=== PATIENT | female | born 1985 | race Caucasian/White ===

== ENCOUNTER 2017-01-23 22:00 | Emergency (ER) | payer OTHER ==
[2017-01-23 22:18] VITALS: BP 136/90
== END 2017-01-24 05:46 | disposition left against medical advice (07) ==
LOC: ER 22:00
DX: Z53.21 Procedure and treatment not carried out due to patient leaving prior to being seen by health care provider (principal)

== ENCOUNTER 2017-07-27 19:40 | Emergency (ER) | payer OTHER ==
--- NOTE | 2017-07-27 20:52 | RADIOLOGY REPORT (SQ) ---
EXAM DESCRIPTION: ANKLE RIGHT COMPLETE COMPLETED DATE/TIME: 07/27/2017 8:43 pm REASON FOR STUDY: SOFTBALL INJURY COMPARISON: None. NUMBER OF VIEWS: Three views. TECHNIQUE: AP, lateral, and oblique radiographic images acquired of the right ankle. LIMITATIONS: None. FINDINGS: MINERALIZATION: Normal. BONES: No acute fracture or dislocation. No worrisome bone lesions. JOINTS: No effusions. SOFT TISSUES: Soft tissue swelling is identified. OTHER: Plantar spurring is identified. IMPRESSION: Soft tissue swelling without evidence for fracture. TECHNICAL DOCUMENTATION: JOB ID: [id number] [employer]- All Rights Reserved
--- NOTE | 2017-07-27 23:01 | ER Document Report ---
HPI - HPI Pain Level: 4 Notes: Patient is a 32-year-old female who presents the ED complaining of right foot and ankle pain status post twist injury while playing softball 3 days ago. Patient states that she was evaluated by the [facility] and was diagnosed with a sprain and given crutches and an air stirrup. Patient states that she is currently with the [employer] and told her to recommend that she will not be able to participate in the PT exercises because of her current condition. Her chain of command wanted her to go to another hospital for another opinion. Patient states that she has not been able to ambulate on that foot because of the pain in the swelling. Patient has been using crutches at home to aid in ambulation. She has been using [id number] meds with minimal relief. The pain does not radiate otherwise. She denies any numbness or tingling. Denies any headache, fever, chest pain, palpitations, syncope, cough, shortness of breath, wheeze, dyspnea, abdominal pain, nausea/vomiting/diarrhea, urinary retention, dysuria, hematuria, numbness/tingling, or rash. - ROS Notes: REVIEW OF SYSTEMS: CONSTITUTIONAL : Denies fever, chills, or sweats. Denies recent illness. EENT: Denies eye, ear, throat, or mouth pain or symptoms. Denies nasal or sinus congestion or discharge. Denies throat, tongue, or mouth swelling or difficulty swallowing. CARDIOVASCULAR: Denies chest pain. Denies palpitations or racing or irregular heart beat. Denies ankle edema. RESPIRATORY: Denies cough, cold, or chest congestion. Denies shortness of breath, difficulty breathing, or wheezing. GASTROINTESTINAL: Denies abdominal pain or distention. Denies nausea, vomiting , or diarrhea. Denies blood in vomitus, stools, or per rectum. Denies black, tarry stools. Denies constipation. GENITOURINARY: Denies difficulty urinating, painful urination, burning, frequency, blood in urine, or discharge. MUSCULOSKELETAL: see hpi SKIN: Denies rash, lesions or sores. NEUROLOGICAL: Denies confusion or altered mental status. Denies passing out or loss of consciousness. Denies dizziness or lightheadedness. Denies headache. Denies weakness or paralysis or loss of use of either side. Denies problems with gait or speech. Denies sensory loss, numbness, or tingling. ALL OTHER SYSTEMS REVIEWED AND NEGATIVE. Dictation was performed using [employer]. voice recognition software - CARDIOVASCULAR Cardiovascular: DENIES: Chest pain - DERM Skin Color: Ecchymosis Past Medical History - Social History Smoking Status: Current Every Day Smoker Chew tobacco use (# tins/day): No Frequency of alcohol use: None Drug Abuse: None Family History: Reviewed & Not Pertinent Patient has suicidal ideation: No Patient has homicidal ideation: No Renal/ Medical History: Denies: Hx Peritoneal Dialysis Surgical Hx: Negative - Immunizations Hx Diphtheria, Pertussis, Tetanus Vaccination: Yes Vertical Provider Document - CONSTITUTIONAL Agree With Documented VS: Yes Notes: PHYSICAL EXAMINATION: GENERAL: Well-appearing, well-nourished and in no acute distress. LUNGS: Breath sounds clear to auscultation bilaterally and equal. No wheezes rales or rhonchi. HEART: Regular rate and rhythm without murmurs, rubs, gallops. Musculoskeletal: Rt ankle/foot: + swelling with ecchymosis noted. LROM to passive/active. Strength 4+/5. + tenderness to the ATFL area as well as the lateral malleolus. N/V intact. Extremities: No cyanosis, clubbing, or edema b/l. Peripheral pulses 2+. Capillary refill less than 3 seconds. NEUROLOGICAL: Normal speech, normal gait. Normal sensory, motor exams PSYCH: Normal mood, normal affect. SKIN: see MSK exam. Warm, Dry, normal turgor, no rashes or lesions noted. - INFECTION CONTROL TRAVEL OUTSIDE OF THE [place] IN LAST 30 DAYS: No - RESPIRATORY O2 Sat by Pulse Oximetry: 100 Course - Re-evaluation Re-evalutation: 07/27/17 22:59 Patient is an afebrile, well-hydrated, 32-year-old female who presents the ED with a right ankle sprain. Vitals are stable. PE/XR otherwise unremarkable for any neurovascular compromise, tendon rupture, septic joint, fracture or dislocation. Patient already has crutches. Patient requesting another form of support for her foot she had he has an Partha wrap and ankle stirrup. We will try her on a postop shoe as patient is concerned because she keeps bumping her foot on objects around her house. Conservative measures for symptoms otherwise. Advised recheck and further evaluation with orthopedics next week. Keep consult with your PCM as scheduled. Return to the ED with any worsening/ concerning symptoms otherwise as reviewed discharge. Patient is in agreement. - Vital Signs Vital signs: Temp Pulse Resp BP Pulse Ox 98.3 F 88 18 147/76 H 100 07/27/17 20:12 07/27/17 20:12 07/27/17 20:12 07/27/17 20:12 07/27/17 20:12 Discharge - Discharge Clinical Impression: Right ankle sprain Qualifiers: Encounter type: initial encounter Involved ligament of ankle: unspecified ligament Qualified Code(s): S93.401A - Sprain of unspecified ligament of right ankle, initial encounter Condition: Stable Disposition: HOME, SELF-CARE Instructions: Ankle Stirrup Splint ([facility]), Partha Wrap ([facility]), Use of Crutches ([facility]) , Ice & Elevation ([facility]), Ice Packs ([facility]), Sprained Ankle ([facility]), Ankle Exercise Program ([facility]), Sports and your Ankle Additional Instructions: Rest, Ice, Compression, Elevation Use crutches/splint/wrap as directed Tylenol/ibuprofen as needed Light stretches daily Strength exercises as able Moist heat and massage may help F/u with your PCP as scheduled for a recheck Call orthopedics to schedule an appointment for further evaluation and management Return to the ED with any worsening symptoms and/or development of fever, headache, chest pain, palpitations, syncope, shortness of breath, trouble breathing, abdominal pain, n/v/d, muscle weakness/paralysis, numbness/tingling, swelling, redness, or other worsening symptoms that are concerning to you. Prescriptions: Naproxen 500 mg PO BID PRN #30 tablet PRN Reason: Forms: Elevated Blood Pressure Referrals: [facility] [Provider Group] - Follow up in 3-5 days
[2017-07-28 00:05] VITALS: BP 122/62
== END 2017-07-28 00:02 | disposition home or self-care (01) ==
LOC: ER 19:40
DX: S93.401A Sprain of unspecified ligament of right ankle, initial encounter (principal); M79.671 Pain in right foot; X50.0XXA Overexertion from strenuous movement or load, initial encounter; Y93.64 Activity, baseball; F17.200 Nicotine dependence, unspecified, uncomplicated
CPT/HCPCS: 99283

== ENCOUNTER 2018-04-03 11:21 | Emergency (ER) | payer OTHER ==
--- NOTE | 2018-04-03 11:54 | ER Document Report ---
ED Hip Pain/Injury - General Chief Complaint: Hip Pain Stated Complaint: LEFT HIP PAIN Time Seen by Provider: 04/03/18 11:41 Mode of Arrival: Ambulatory Information source: Patient Notes: 33-year-old female presents to ED for complaint of left hip pain that radiates down to her knee. She states she originally injured on Monday while running and then while at work on this morning she lifted some heavy and it started hurting all over again. Respirations are regular and unlabored. Patient was placed in a wheelchair due to the pain. Patient is active nerves and went to the [facility] on Monday they did not tractor for and they started her on [place] well Robaxin and ibuprofen. She states they did not do an x-ray of her hip. She states the pain is much worse today than it was on Monday. TRAVEL OUTSIDE OF THE [place] IN LAST 30 DAYS: No - HPI Patient complains to provider of: Hip - left Occurred: Other - monday Where: Work Onset/Duration: Persistent, Worse Quality of pain: Burning, Sharp Severity: Moderate Pain Level: 4 Context: Other - First injured it while running PT for the [employer] and then she lifted something heavy and hurting it again. 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 Lives with: Spouse/Significant other Family History: Reviewed & Not Pertinent Patient has suicidal ideation: No Patient has homicidal ideation: No - Past Medical History Cardiac Medical History: Reports: None Pulmonary Medical History: Reports: None EENT Medical History: Reports: None Neurological Medical History: Reports: None Endocrine Medical History: Reports: None Renal/ Medical History: Reports: None Malignancy Medical History: Reports: None GI Medical History: Reports: None Musculoskeltal Medical History: Reports None Skin Medical History: Reports None Psychiatric Medical History: Reports: None Traumatic Medical History: Reports: None Infectious Medical History: Reports: None Surgical Hx: Negative Past Surgical History: Reports: None - Immunizations Immunizations up to date: Yes Hx Diphtheria, Pertussis, Tetanus Vaccination: Yes Review of Systems - Review of Systems Constitutional: No symptoms reported EENT: No symptoms reported Cardiovascular: No symptoms reported Respiratory: No symptoms reported Gastrointestinal: No symptoms reported Genitourinary: No symptoms reported Female Genitourinary: No symptoms reported Musculoskeletal: Other - Left hip and pelvic pain Skin: No symptoms reported Hematologic/Lymphatic: No symptoms reported Neurological/Psychological: No symptoms reported -: Yes All other systems reviewed and negative Physical Exam - Vital signs Vitals: Temp Pulse Resp BP Pulse Ox 98.7 F 96 22 H 168/87 H 98 04/03/18 11:29 04/03/18 11:29 04/03/18 11:29 04/03/18 11:29 04/03/18 11:29 Interpretation: Normal - General General appearance: Appears well, Alert - HEENT Head: Normocephalic, Atraumatic Eyes: Normal Pupils: PERRL - Respiratory Respiratory status: No respiratory distress Chest status: Nontender Breath sounds: Normal Chest palpation: Normal - Cardiovascular Rhythm: Regular Heart sounds: Normal auscultation Murmur: No - Abdominal Inspection: Normal Distension: No distension Bowel sounds: Normal Tenderness: Nontender Organomegaly: No organomegaly - Back Back: Normal, Nontender - Extremities General upper extremity: Normal inspection, Nontender, Normal color, Normal ROM , Normal temperature General lower extremity: Normal inspection, Nontender, Normal color, Normal ROM , Normal temperature, Normal weight bearing. No: Jerrod's sign Shoulder: Normal, Nontender Hip: Tender, Pain with ROM, Unable to bear weight. No: Abrasion, Deformity, Dislocation, Ecchymosis, Instability, Laceration - Neurological Neuro grossly intact: Yes Cognition: Normal Orientation: AAOx4 Krysten Coma Scale Eye Opening: Spontaneous Krysten Coma Scale Verbal: Oriented [place] Coma Scale Motor: Obeys Commands Krysten Coma Scale Total: 15 Speech: Normal Motor strength normal: LUE, RUE, LLE, RLE Sensory: Normal - Psychological Associated symptoms: Normal affect, Normal mood - Skin Skin Temperature: Warm Skin Moisture: Dry Skin Color: Normal Course - Re-evaluation Re-evalutation: 04/03/18 21:52 Patient is complaining of left hip and pelvic pain. Her urine did come back with a UTI. She states that she and her girlfriend been trying to get to the soft cup measures third. Her test was negative. Her x-ray was negative. Patient was instructed on use of ibuprofen and exercise and to follow-up with her primary doctor. She was treated with Macrobid in the emergency room and her urine was sent for a urine culture. She was also sent home with prescription for Macrobid. - Vital Signs Vital signs: Temp Pulse Resp BP Pulse Ox 98.7 F 82 18 153/74 H 99 04/03/18 11:29 04/03/18 13:33 04/03/18 13:33 04/03/18 13:33 04/03/18 13:33 - Laboratory Laboratory results interpreted by me: 04/03/18 11:50 Ur Leukocyte Esterase SMALL H - Diagnostic Test Radiology reviewed: Image reviewed, Reports reviewed Discharge - Discharge Clinical Impression: Left hip pain UTI (urinary tract infection) Qualifiers: Urinary tract infection type: site unspecified Hematuria presence: without hematuria Qualified Code(s): N39.0 - Urinary tract infection, site not specified Condition: Stable Disposition: HOME, SELF-CARE Instructions: Range of Motion Exercises ([facility]), Stretching Exercises for the Back ([facility]) Additional Instructions: Arthralgia Arthralgia is pain in the joints. We use the word arthralgia to describe joint pain where there's no history of injury, no known joint disease, and the joints are normal to examination. Arthralgia can be a symptom of an acute illness, such as influenza, hepatitis, or serum sickness. Sometimes the joint pain comes before any other symptoms. Arthralgia can also be an early symptom of joint disease, such as rheumatoid arthritis or lupus. If arthralgia is accompanied by an acute illness that explains the joint pain, such as mononucleosis, no further testing needs to be done. When there's no clear reason for the pain, tests may be done to see if there's an inflammatory disease of the joints. The usual treatment is anti-inflammatory medication, such as ibuprofen. Joint aches can be soothed with a heating pad or hot compress. If joints remain painful more than a few days, you'll need testing and followup. Return if a joint becomes swollen, red, or severely painful. URINARY TRACT INFECTION: Your evaluation indicates that you have a urinary tract infection. This is due to germs growing in the bladder. This is a common problem. This infection usually responds quickly to antibiotics. Your antibiotic should be taken exactly as prescribed. Drink plenty of fluids -- three to four quarts a day. Occasionally, a bladder anesthetic will be prescribed to help stop the feeling of urgency until the antibiotic has a chance to clear the infection. This may cause your urine to be dark orange. Certain urine infections require a culture. If the doctor obtained a culture, the results will be back in two days. You should call to see if a change in treatment is needed. A repeat urinalysis after you finish treatment is often recommended. The physician will let you know if further testing is required. Call the doctor if you develop fever, chills, flank pain, inability to urinate, or blood in the urine. NITROFURANTOIN (MACRODANTIN, MACROBID): You have received a prescription for nitrofurantoin (Macrodantin). This antibiotic is used for urinary tract infections. Women who are or nursing should notify the physician before taking this medicine. If you have ever had a problem caused by this medication in the past, be sure the physician is aware of it. Common side effects of this medicine include nausea, vomiting, or decreased appetite. Notify your physician if these side effects become severe. Immediately stop this medicine and call the physician if you develop cough , shortness of breath, chest pain, weakness, jaundice (yellow color of the skin and whites of the eyes), or a skin rash. You have been given muscle relaxers and anti-inflammatories both of which will help your hip pain as there is no fractures noted on the hip. I have given you antibiotics for your urinary tract infection. A urine culture was sent to ensure this is the right antibiotic. FOLLOW-UP CARE: If you have been referred to a physician for follow-up care, call the physician s office for an appointment as you were instructed or within the next two days. If you experience worsening or a significant change in your symptoms, notify the physician immediately or return to the Emergency Department at any time for re-evaluation. Prescriptions: Nitrofurantoin/Nitrofuran Mac [Macrobid 100 mg Capsule] 1 tab PO BID #20 capsule Forms: Elevated Blood Pressure, Smoking Cessation Education, Return to Work Referrals: RUSS CORTEZ, [ACTIVE STAFF] - Follow up as needed
[2018-04-03 12:14] LABS: APPEARANCE,URINE CLEAR; BILIRUBIN,URINE NEGATIVE (NEGATIVE); GLUCOSE, URINE NEGATIVE (NEGATIVE); KETONES,URINE NEGATIVE (NEGATIVE); LEUKOCYTE ESTERASE,URINE SMALL (NEGATIVE); NITRITE,URINE NEGATIVE (NEGATIVE); PROTEIN,URINE NEGATIVE (NEGATIVE); URINE SPECIFIC GRAVITY 1.005; UROBILINOGEN,URINE NEGATIVE mg/dL (<2.0)
[2018-04-03 12:16] LABS: COLOR,URINE LIGHT YELLOW
--- NOTE | 2018-04-03 13:13 | RADIOLOGY REPORT (SQ) ---
EXAM DESCRIPTION: HIP LEFT AP/LATERAL COMPLETED DATE/TIME: 04/03/2018 1:06 pm REASON FOR STUDY: pain injury COMPARISON: None. NUMBER OF VIEWS: Two views. TECHNIQUE: AP pelvis and additional frog-leg view of the left hip. LIMITATIONS: None. FINDINGS: MINERALIZATION: Normal. LEFT HIP: No fracture or dislocation. No worrisome bone lesions. RIGHT HIP: No fracture or dislocation. No worrisome bone lesions. PUBIS AND ISCHIUM: No fracture. PELVIS: No fracture. SACRUM: No fracture or dislocation. No worrisome bone lesions. LOWER LUMBAR SPINE: No fracture or dislocation. No worrisome bone lesions. No significant disc disea se. SOFT TISSUES: No findings. OTHER: No other significant finding. IMPRESSION: NEGATIVE STUDY OF THE LEFT HIP AND PELVIS. NO RADIOGRAPHIC EVIDENCE OF ACUTE INJURY. TECHNICAL DOCUMENTATION: JOB ID: [id number] [employer]- All Rights Reserved Reading location - IP/workstation name: [email or web address]
[2018-04-03 13:34] VITALS: BP 153/74
== END 2018-04-03 13:33 | disposition home or self-care (01) ==
LOC: ER 11:21
DX: M25.552 Pain in left hip (principal); N39.0 Urinary tract infection, site not specified; R10.2 Pelvic and perineal pain; F17.210 Nicotine dependence, cigarettes, uncomplicated; Z71.6 Tobacco abuse counseling
CPT/HCPCS: 36415; 81001; 84703; 87086; 99283; 99406

== ENCOUNTER 2018-05-01 16:20 | Emergency (ER) | payer OTHER ==
--- NOTE | 2018-05-01 17:44 | ER Document Report ---
ED General - General Chief Complaint: Lower Abdominal Pain Stated Complaint: ABDOMINAL PAIN Time Seen by Provider: 05/01/18 17:34 Mode of Arrival: Ambulatory Information source: Patient Notes: 33-year-old female presents with complaints of cramping on the left lower quadrant. Patient notes she found that she is last night she is 2 para 1 last menstrual period was approximately 1 month ago Patient unsure blood type, denies any vaginal bleeding or discharge TRAVEL OUTSIDE OF THE [place] IN LAST 30 DAYS: No - HPI Onset: This morning Onset/Duration: Sudden Quality of pain: Cramping Severity: Mild Pain Level: 1 Associated symptoms: Other Exacerbated by: Denies Relieved by: Denies Similar symptoms previously: No Recently seen / treated by doctor: No - Related Data Allergies/Adverse Reactions: No Known Allergies Allergy (Unverified 10/23/15 20:12) Past Medical History - Social History Smoking Status: Never Smoker Cigarette use (# per day): No Chew tobacco use (# tins/day): No Smoking Education Provided: No Family History: Reviewed & Not Pertinent Renal/ Medical History: Denies: Hx Peritoneal Dialysis - Immunizations Immunizations up to date: Yes Hx Diphtheria, Pertussis, Tetanus Vaccination: Yes Review of Systems - Review of Systems Notes: REVIEW OF SYSTEMS: CONSTITUTIONAL : Denies fever, chills, or sweats. Denies recent illness. EENT: Denies eye, ear, throat, or mouth pain or symptoms. Denies nasal or sinus congestion or discharge. Denies throat, tongue, or mouth swelling or difficulty swallowing. CARDIOVASCULAR: Denies chest pain. Denies palpitations or racing or irregular heart beat. Denies ankle edema. RESPIRATORY: Denies cough, cold, or chest congestion. Denies shortness of breath, difficulty breathing, or wheezing. GASTROINTESTINAL: Admits to pelvic cramping GENITOURINARY: Denies difficulty urinating, painful urination, burning, frequency, blood in urine, or discharge. FEMALE GENITOURINARY: Denies vaginal bleeding, heavy or abnormal periods, irregular periods. Denies vaginal discharge or odor. MUSCULOSKELETAL: Denies back or neck pain or stiffness. Denies joint pain or swelling. SKIN: Denies rash, lesions or sores. HEMATOLOGIC : Denies easy bruising or bleeding. LYMPHATIC: Denies swollen, enlarged glands. NEUROLOGICAL: Denies confusion or altered mental status. Denies passing out or loss of consciousness. Denies dizziness or lightheadedness. Denies headache. Denies weakness or paralysis or loss of use of either side. Denies problems with gait or speech. Denies sensory loss, numbness, or tingling. Denies seizures. PSYCHIATRIC: Denies anxiety or stress. Denies depression, suicidal ideation, or homicidal ideation. ALL OTHER SYSTEMS REVIEWED AND NEGATIVE. PHYSICAL EXAMINATION: GENERAL: Well-appearing, well-nourished and in no acute distress. HEAD: Atraumatic, normocephalic. EYES: Pupils equal round and reactive to light, extraocular movements intact, conjunctiva are normal. ENT: Nares patent, oropharynx clear without exudates. Moist mucous membranes. NECK: Normal range of motion, supple without lymphadenopathy LUNGS: Breath sounds clear to auscultation bilaterally and equal. No wheezes rales or rhonchi. HEART: Regular rate and rhythm without murmurs ABDOMEN: Soft, nontender, nondistended abdomen. No guarding, no rebound. No masses appreciated. Female : deferred Musculoskeletal: Normal range of motion, no pitting or edema. No cyanosis. NEUROLOGICAL: Cranial nerves grossly intact. Normal speech, normal gait. Normal sensory, motor exams PSYCH: Normal mood, normal affect. SKIN: Warm, Dry, normal turgor, no rashes or lesions noted. Dictation was performed using [employer] voice recognition software Physical Exam - Vital signs Vitals: Temp Pulse Resp BP Pulse Ox 99.0 F 89 16 137/76 H 99 05/01/18 16:31 05/01/18 16:31 05/01/18 16:31 18 16:31 05/01/18 16:31 Course - Re-evaluation Re-evalutation: 05/01/18 19:07 Patient's hCG quant is 60, there is too early to see anything on ultrasound, repeat quant has been ordered we will treat for UTI and After performing a Medical Screening Examination, I estimate there is LOW risk for ACUTE APPENDICITIS, BOWEL OBSTRUCTION, ACUTE CHOLECYSTITIS, PERFORATED DIVERTICULITIS, INCARCERATED HERNIA, PANCREATITIS, PELVIC INFLAMMATORY DISEASE, PERFORATED ULCER, ECTOPIC , or TUBO-OVARIAN ABSCESS, thus I consider the discharge disposition reasonable. Also, there is no evidence or peritonitis , sepsis, or toxicity. I have reevaluated this patient multiple times and no significant life threatening changes are noted. The patient and I have discussed the diagnosis and risks, and we agree with discharging home with close follow-up with the understanding that symptoms and presentations can change. We also discussed returning to the Emergency Department immediately if new or worsening symptoms occur. We have discussed the symptoms which are most concerning (e.g., bloody stool, fever, changing or worsening pain, vomiting) that necessitate immediate return. - Vital Signs Vital signs: Temp Pulse Resp BP Pulse Ox 99.0 F 89 16 137/76 H 99 05/01/18 16:31 05/01/18 16:31 05/01/18 16:31 05/01/18 16:31 05/01/18 16:31 - Laboratory Result Diagrams: 05/01/18 17:55 05/01/18 17:55 Laboratory results interpreted by me: 05/01/18 05/01/18 16:25 17:55 Beta HCG, Quant 60.59 H Urine Blood SMALL H Ur Leukocyte Esterase SMALL H Discharge - Discharge Clinical Impression: Early stage of UTI in Qualifiers: Trimester: first trimester Qualified Code(s): O23.41 - Unspecified infection of urinary tract in , first trimester Condition: Stable Disposition: HOME, SELF-CARE Instructions: ([facility]) Prescriptions: Cephalexin Monohydrate [Keflex 500 mg Capsule] 500 mg PO BID 7 Days capsule Forms: Follow-Up Laboratory Testing Referrals: KENN GUTIERREZ MD [NO LOCAL MD] - [facility] - Follow up tomorrow
[2018-05-01 18:14] LABS: ABSOLUTE BASOPHILS # (AUTO) 0.1 10^3/uL (0.0-0.2); ABSOLUTE EOSINOPHILS # (AUTO) 0.3 10^3/uL (0.0-0.6); ABSOLUTE LYMPHOCYTES (AUTO) 2.4 10^3/uL (0.5-4.7); ABSOLUTE MONOCYTES (AUTO) 0.4 10^3/uL (0.1-1.4); ABSOLUTE NEUT (AUTO) 6.8 10^3/uL (1.7-8.2); EOSINOPHILS % (AUTO) 2.8 % (0-6); HEMATOCRIT 39.8 % (36.0-47.0); HEMOGLOBIN 13.8 g/dL (12.0-15.5); LYMPHOCYTES % (AUTO) 23.9 % (13-45); MEAN CORPUSCULAR HEMOGLOBIN 30.5 pg (27.0-33.4); MEAN CORPUSCULAR HGB CONC 34.8 g/dL (32.0-36.0); MEAN CORPUSCULAR VOLUME 88 fl (80-97); MONOCYTES % (AUTO) 4.4 % (3-13); PLATELET COUNT 353 10^3/uL (150-450); RED BLOOD COUNT 4.54 10^6/uL (3.72-5.28); RED CELL DISTRIBUTION WIDTH 13.8 % (11.5-14.0); SEGMENTED NEUTROPHILS % (AUTO) 67.9 % (42-78); TOTAL CELLS COUNTED % (AUTO) 100 %
[2018-05-01 18:36] LABS: ALANINE AMINOTRANSFERASE 24 U/L (9-52); ALBUMIN 4.3 g/dL (3.5-5.0); ALKALINE PHOSPHATASE 53 U/L (38-126); ANION GAP 9 (5-19); ASPARTATE AMINO TRANSFERASE 20 U/L (14-36); BILIRUBIN,DIRECT 0.3 mg/dL (0.0-0.4); BILIRUBIN,TOTAL 0.4 mg/dL (0.2-1.3); BLOOD UREA NITROGEN 13 mg/dL (7-20); CALCIUM 9.7 mg/dL (8.4-10.2); CARBON DIOXIDE 25 mmol/L (22-30); CHLORIDE 107 mmol/L (98-107); GLUCOSE 100 mg/dL (75-110); POTASSIUM 4.4 mmol/L (3.6-5.0); SODIUM 141.1 mmol/L (137-145); TOTAL PROTEIN 7.1 g/dL (6.3-8.2)
[2018-05-01 18:36] LABS: APPEARANCE,URINE CLEAR; BILIRUBIN,URINE NEGATIVE (NEGATIVE); COLOR,URINE COLORLESS; GLUCOSE, URINE NEGATIVE (NEGATIVE); KETONES,URINE NEGATIVE (NEGATIVE); LEUKOCYTE ESTERASE,URINE SMALL (NEGATIVE); NITRITE,URINE NEGATIVE (NEGATIVE); PROTEIN,URINE NEGATIVE (NEGATIVE); URINE SPECIFIC GRAVITY 1.003; UROBILINOGEN,URINE NEGATIVE mg/dL (<2.0)
[2018-05-01 19:17] VITALS: BP 137/87
== END 2018-05-01 19:16 | disposition home or self-care (01) ==
LOC: ER 16:20
DX: O23.41 Unspecified infection of urinary tract in pregnancy, first trimester (principal); R10.30 Lower abdominal pain, unspecified
CPT/HCPCS: 36415; 80053; 81001; 84702; 85025; 86850; 86900; 86901; 99284

== ENCOUNTER → 2018-05-03 | Outpatient (CLI) | payer OTHER | LOC: LAB 13:55 | PROVIDERS: ATTEND Emergency Medicine | DX: O26.899 Other specified pregnancy related conditions, unspecified trimester (principal); R10.2 Pelvic and perineal pain | CPT/HCPCS: 36415; 84702 ==

== ENCOUNTER → 2018-06-04 | Outpatient (CLI) | payer SELFPAY ==
--- NOTE | 2018-06-04 14:57 | RADIOLOGY REPORT (SQ) ---
EXAM DESCRIPTION: U/S BACTRIM TRNABD 1GES W/ODOP COMPLETED DATE/TIME: 06/04/2018 1:47 pm REASON FOR STUDY: ENCOUNTER FOR SUPERVISION OF OTHER NORMAL , FIRST TRIMESTER Z34.81 ENCOU NTER FOR SUPRVSN OF NORMAL , FIRST TRIM COMPARISON: None. TECHNIQUE: Transabdominal static and realtime grayscale images acquired of the pelvis. Additional se lected spectral and color Doppler images recorded. All images stored on PACs. bHCG: Not available. CLINICAL DATES: EGA: 8 weeks 0 days. ANGELIQUE: 01/14/2019 LIMITATIONS: None. FINDINGS: FETUS: Living intrauterine . ULTRASOUND EGA: 9 weeks 0 days ULTRASOUND ANGELIQUE: 01/07/2019 CRL: 2.3 cm FHR: 169 beats per minute. SUBCHORIONIC BLEED: No SIZE OF BLEED: Not applicable. UTERUS: The uterus measures 11.1 x 7.1 x 6.3 cm. CERVICAL LENGTH: 3.2 cm. Closed. RIGHT ADNEXA: The right ovary measures 2.4 x 2.2 x 1.9 cm. Normal ovary with normal vascular flow. No adnexal free fluid. No adnexal masses. LEFT ADNEXA: The left ovary measures 3.7 x 3.8 x 3.9 cm. A 2.8 x 3.6 x 3.0 cm corpus luteum cyst. N ormal vascular flow. No adnexal free fluid. FREE FLUID: None. OTHER: No other significant finding. IMPRESSION: LIVING INTRAUTERINE . EGA 9 weeks 0 days Trimester of : First - 0 to 13 weeks. TECHNICAL DOCUMENTATION: JOB ID: [id number]- All Rights Reserved rev Reading location - IP/workstation name: [email or web address]
== END ==
LOC: RAD 12:52
PROVIDERS: ATTEND Nurse Practitioner Women's Health
DX: O34.81 Maternal care for other abnormalities of pelvic organs, first trimester (principal); N83.12 Corpus luteum cyst of left ovary
CPT/HCPCS: 76801

== ENCOUNTER 2018-09-27 20:24 | Outpatient (CLI) | payer MEDICAID ==
[2018-09-27 21:16] LABS: APPEARANCE,URINE CLEAR; BILIRUBIN,URINE NEGATIVE (NEGATIVE); COLOR,URINE STRAW; GLUCOSE, URINE NEGATIVE (NEGATIVE); KETONES,URINE NEGATIVE (NEGATIVE); LEUKOCYTE ESTERASE,URINE NEGATIVE (NEGATIVE); NITRITE,URINE NEGATIVE (NEGATIVE); PROTEIN,URINE NEGATIVE (NEGATIVE); URINE SPECIFIC GRAVITY 1.006; UROBILINOGEN,URINE NEGATIVE mg/dL (<2.0)
[2018-09-27 21:21] LABS: INTERNATIONAL RATION (INR) 0.86; PROTHROMBIN TIME 12.1 SEC (11.4-15.4)
[2018-09-27 21:22] LABS: FIBRINOGEN 411 mg/dL (209-497); PARTIAL THROMBOPLASTIN TIME 28.2 SEC (23.5-35.8)
[2018-09-27 21:31] LABS: URINE AMPHETAMINES SCREEN NEGATIVE; URINE BARBITURATES SCREEN NEGATIVE; URINE BENZODIAZEPINES SCREEN NEGATIVE; URINE COCAINE SCREEN NEGATIVE; URINE MARIJUANA (THC) SCREEN NEGATIVE; URINE METHADONE SCREEN NEGATIVE; URINE PHENCYCLIDINE SCREEN NEGATIVE
== END 2018-09-27 22:06 | disposition home or self-care (01) ==
LOC: LC 20:24
PROVIDERS: ATTEND Obstetrics & Gynecology
DX: O47.02 False labor before 37 completed weeks of gestation, second trimester (principal); Z3A.25 25 weeks gestation of pregnancy
CPT/HCPCS: 36415; 80307; 81001; 85384; 85610; 85730

== ENCOUNTER 2018-12-07 11:44 | Outpatient (CLI) | payer MEDICAID ==
[2018-12-07 13:12] LABS: ABSOLUTE EOSINOPHILS # (AUTO) 0.2 10^3/uL (0.0-0.6); ABSOLUTE LYMPHOCYTES (AUTO) 1.9 10^3/uL (0.5-4.7); ABSOLUTE MONOCYTES (AUTO) 0.7 10^3/uL (0.1-1.4); BASOPHILS % (AUTO) 0.4 % (0-2); EOSINOPHILS % (AUTO) 1.9 % (0-6); HEMOGLOBIN 10.3 g/dL (12.0-15.5); LYMPHOCYTES % (AUTO) 17.5 % (13-45); MEAN CORPUSCULAR HEMOGLOBIN 30.1 pg (27.0-33.4); MEAN CORPUSCULAR HGB CONC 35.4 g/dL (32.0-36.0); MEAN CORPUSCULAR VOLUME 85 fl (80-97); MONOCYTES % (AUTO) 6.5 % (3-13); PLATELET COUNT 292 10^3/uL (150-450); RED BLOOD COUNT 3.41 10^6/uL (3.72-5.28); RED CELL DISTRIBUTION WIDTH 12.8 % (11.5-14.0); SEGMENTED NEUTROPHILS % (AUTO) 73.7 % (42-78); TOTAL CELLS COUNTED % (AUTO) 100 %; WHITE BLOOD COUNT 10.9 10^3/uL (4.0-10.5)
[2018-12-07 13:17] LABS: APPEARANCE,URINE SLIGHTLY-CLOUDY; BILIRUBIN,URINE NEGATIVE (NEGATIVE); COLOR,URINE YELLOW; GLUCOSE, URINE NEGATIVE (NEGATIVE); KETONES,URINE NEGATIVE (NEGATIVE); LEUKOCYTE ESTERASE,URINE NEGATIVE (NEGATIVE); NITRITE,URINE NEGATIVE (NEGATIVE); PROTEIN,URINE NEGATIVE (NEGATIVE); URINE SPECIFIC GRAVITY 1.012; UROBILINOGEN,URINE NEGATIVE mg/dL (<2.0)
[2018-12-07 13:27] LABS: ALANINE AMINOTRANSFERASE 21 U/L (9-52); ALBUMIN 3.3 g/dL (3.5-5.0); ALKALINE PHOSPHATASE 106 U/L (38-126); ANION GAP 7 (5-19); ASPARTATE AMINO TRANSFERASE 16 U/L (14-36); BILIRUBIN,TOTAL 0.3 mg/dL (0.2-1.3); BLOOD UREA NITROGEN 5 mg/dL (7-20); CARBON DIOXIDE 22 mmol/L (22-30); CHLORIDE 109 mmol/L (98-107); GLUCOSE 80 mg/dL (75-110); POTASSIUM 4.2 mmol/L (3.6-5.0)
[2018-12-07 13:28] LABS: BILIRUBIN,DIRECT 0.2 mg/dL (0.0-0.4); TOTAL PROTEIN 5.7 g/dL (6.3-8.2); URIC ACID 6.2 mg/dL (2.5-6.2)
[2018-12-07 13:31] LABS: URINE BARBITURATES SCREEN NEGATIVE; URINE BENZODIAZEPINES SCREEN NEGATIVE; URINE COCAINE SCREEN NEGATIVE; URINE MARIJUANA (THC) SCREEN NEGATIVE; URINE METHADONE SCREEN NEGATIVE; URINE PHENCYCLIDINE SCREEN NEGATIVE
[2018-12-07 13:35] LABS: URINE AMPHETAMINES SCREEN NEGATIVE
[2018-12-07 13:38] LABS: UR PRO/CREAT RATIO RESULT 0.2 mg/mg (0.0-0.2); URINE PROTEIN 18.8 mg/dL (<12)
--- NOTE | 2018-12-07 14:07 | Non Stress Test Report ---
Non Stress Test Datetime Report Generated by CPN: 12/07/2018 14:06 DEMOGRAPHIC EGA NST: 35.1 INDICATION Indication for Study: Decreased Movement; Ordered by Provider VITAL SIGNS Temperature - NST: 98.9 MONITORING Monitor Explained: Monitor Explained; Test Explained; Patient Verbalized Understanding Time on Monitor: 12/07/2018 12:07 Time off Monitor: 12/07/2018 14:00 NST Duration: 113 NST INTERVENTIONS NST Interventions: PO Hydration Physician Notified NST: P. Cooper, CNM BABY A: [id number] BABY A Movement : Present Contraction Frequency : occ FHR Baseline : 130 Accelerations : 15X15 Decelerations : None Variability : Moderate 6-25bpm NST Review: Meets Criteria for Reactive NST NST Review and Verified By : Constantine Swanson RN NST Results: Reactive NST REPORT Report Trigger: Send Report
== END 2018-12-07 14:29 | disposition home or self-care (01) ==
LOC: LC 11:44
PROVIDERS: ATTEND Obstetrics & Gynecology
PROC: 4A1HXCZ Monitoring of Products of Conception, Cardiac Rate, External Approach (ICD-10-PCS; principal; 2018-12-07)
DX: O36.8130 Decreased fetal movements, third trimester, not applicable or unspecified (principal); O13.3 Gestational [pregnancy-induced] hypertension without significant proteinuria, third trimester; Z3A.35 35 weeks gestation of pregnancy
CPT/HCPCS: 36415; 80053; 80307; 81001; 82570; 83615; 84156; 84550; 85025

== ENCOUNTER 2018-12-20 13:45 | Outpatient (CLI) | payer MEDICAID ==
[2018-12-20 14:21] LABS: APPEARANCE,URINE SLIGHTLY-CLOUDY; BILIRUBIN,URINE NEGATIVE (NEGATIVE); COLOR,URINE YELLOW; GLUCOSE, URINE NEGATIVE (NEGATIVE); KETONES,URINE NEGATIVE (NEGATIVE); LEUKOCYTE ESTERASE,URINE NEGATIVE (NEGATIVE); NITRITE,URINE NEGATIVE (NEGATIVE); PROTEIN,URINE 30 mg/dL (NEGATIVE); URINE SPECIFIC GRAVITY 1.025; UROBILINOGEN,URINE NEGATIVE mg/dL (<2.0)
[2018-12-20 14:41] LABS: URINE AMPHETAMINES SCREEN NEGATIVE; URINE BARBITURATES SCREEN NEGATIVE; URINE BENZODIAZEPINES SCREEN NEGATIVE; URINE COCAINE SCREEN NEGATIVE; URINE MARIJUANA (THC) SCREEN NEGATIVE; URINE METHADONE SCREEN NEGATIVE; URINE PHENCYCLIDINE SCREEN NEGATIVE
[2018-12-20] MEDS: RINGERS SOLUTION,LACTATED 1,000 ML IV PRN ×2 (14:44→15:33)
[2018-12-20 14:48] LABS: UR PRO/CREAT RATIO RESULT 0.1 mg/mg (0.0-0.2); URINE CREATININE 248.6 mg/dL (16-327); URINE PROTEIN 21.4 mg/dL (<12)
[2018-12-20 15:00] LABS: ABSOLUTE EOSINOPHILS # (AUTO) 0.1 10^3/uL (0.0-0.6); ABSOLUTE LYMPHOCYTES (AUTO) 1.9 10^3/uL (0.5-4.7); ABSOLUTE MONOCYTES (AUTO) 0.6 10^3/uL (0.1-1.4); ABSOLUTE NEUT (AUTO) 8.2 10^3/uL (1.7-8.2); BASOPHILS % (AUTO) 0.4 % (0-2); HEMATOCRIT 29.5 % (36.0-47.0); HEMOGLOBIN 10.4 g/dL (12.0-15.5); LYMPHOCYTES % (AUTO) 17.5 % (13-45); MEAN CORPUSCULAR HEMOGLOBIN 29.8 pg (27.0-33.4); MEAN CORPUSCULAR HGB CONC 35.4 g/dL (32.0-36.0); MEAN CORPUSCULAR VOLUME 84 fl (80-97); MONOCYTES % (AUTO) 5.4 % (3-13); PLATELET COUNT 304 10^3/uL (150-450); RED CELL DISTRIBUTION WIDTH 12.5 % (11.5-14.0); SEGMENTED NEUTROPHILS % (AUTO) 75.7 % (42-78); TOTAL CELLS COUNTED % (AUTO) 100 %; WHITE BLOOD COUNT 10.8 10^3/uL (4.0-10.5)
[2018-12-20 15:33] LABS: ALANINE AMINOTRANSFERASE 18 U/L (9-52); ALBUMIN 3.3 g/dL (3.5-5.0); ALKALINE PHOSPHATASE 139 U/L (38-126); ANION GAP 8 (5-19); ASPARTATE AMINO TRANSFERASE 24 U/L (14-36); BILIRUBIN,DIRECT 0.1 mg/dL (0.0-0.4); BILIRUBIN,TOTAL 0.3 mg/dL (0.2-1.3); BLOOD UREA NITROGEN 9 mg/dL (7-20); CALCIUM 9.2 mg/dL (8.4-10.2); CARBON DIOXIDE 22 mmol/L (22-30); CHLORIDE 107 mmol/L (98-107); GLUCOSE 84 mg/dL (75-110); POTASSIUM 3.8 mmol/L (3.6-5.0); SODIUM 136.8 mmol/L (137-145); TOTAL PROTEIN 5.5 g/dL (6.3-8.2)
[2018-12-20] MEDS ORDERED: ONDANSETRON HCL INJ/PF 4 MG/2 ML SDV IV ONE (15:38)
[2018-12-20] MEDS ORDERED: ONDANSETRON HCL INJ/PF 4 MG/2 ML SDV ONE (15:48)
--- NOTE | 2018-12-20 15:58 | RADIOLOGY REPORT (SQ) ---
EXAM DESCRIPTION: U/S PROFILE W/O STRESS COMPLETED DATE/TIME: 12/20/2018 3:36 pm REASON FOR STUDY: nonreactive 37 wk COMPARISON: None. TECHNIQUE: Limited [place]-scale realtime and static images of the fetus to measure specified parameter s. LIMITATIONS: None. FINDINGS: HEART RATE: 145 beats per minute. CHARO: 11.9 cm. BREATHING MOVEMENT: 2 points. MOVEMENT: 2 points. POSTURE AND TONE: 2 points. QUALITATIVE CHARO: 2 points. OTHER: ANGELIQUE: 01/10/2019. Cephalic presentation.. IMPRESSION: BIOPHYSICAL PROFILE: 06/06. Trimester of : Third - 28 weeks to delivery COMMENT: BREATHING MOVEMENTS: 2 POINTS: PRESENT 0 POINTS: ABSENT MOTION: 2 POINTS: PRESENT 0 POINTS: ABSENT TONE: 2 POINTS: PRESENT 0 POINTS: ABSENT AMNIOTIC FLUID VOLUME: 2 POINTS: LARGEST POCKET GREATER THAN 2 CM DEPTH. 0 POINTS: NO POCKET OF 2 CM. TECHNICAL DOCUMENTATION: JOB ID: [id number] [employer]- All Rights Reserved Reading location - IP/workstation name: [email or web address]
--- NOTE | 2018-12-20 17:30 | Non Stress Test Report ---
Non Stress Test Datetime Report Generated by CPN: 12/20/2018 17:30 DEMOGRAPHIC EGA NST: 37.0 INDICATION Indication for Study: Ordered by Provider MONITORING Monitor Explained: Monitor Explained; Test Explained; Patient Verbalized Understanding Time on Monitor: 12/20/2018 15:25 Time off Monitor: 12/20/2018 16:36 NST Duration: 71 NST INTERVENTIONS NST Interventions: PO Hydration; IV Fluids Physician Notified NST: Tha De Dios CNM BABY A: [id number] Movement : Present Contraction Frequency : none FHR Baseline : 140 Accelerations : 15X15 Decelerations : None Variability : Moderate 6-25bpm NST Review: Meets Criteria for Reactive NST NST Review and Verified By : ANALI Farmer Results: Reactive NST COMMENTS NST Comments: BPP 8/8 and 10/10 with reactive NST NST REPORT Report Trigger: Send Report
== END 2018-12-20 16:45 | disposition home or self-care (01) ==
LOC: LC 13:45
PROVIDERS: ATTEND Obstetrics & Gynecology Gynecology
PROC: 4A1HXCZ Monitoring of Products of Conception, Cardiac Rate, External Approach (ICD-10-PCS; principal; 2018-12-20)
DX: O99.283 Endocrine, nutritional and metabolic diseases complicating pregnancy, third trimester (principal); E86.0 Dehydration; Z3A.37 37 weeks gestation of pregnancy
CPT/HCPCS: 59025; 36415; 83615; 84156; 84550; 82570; 85025; 81005; 80053; 80307; 76819; J2405

== ENCOUNTER 2018-12-21 14:39 | Inpatient (IN) | payer MEDICAID ==
[2018-12-21] MEDS ORDERED: RINGERS SOLUTION,LACTATED 1,000 ML IV PRN (15:07)
[2018-12-21] MEDS ORDERED: ACETAMINOPHEN 325 MG TABLET PO PRN (15:07)
[2018-12-21] MEDS ORDERED: ZOLPIDEM TARTRATE 5 MG TABLET PO PRN (15:07)
[2018-12-21] MEDS ORDERED: HYDRALAZINE HCL INJ/PF 20 MG/1 ML SDV IV ONE ×2 (15:20→15:55)
[2018-12-21] MEDS ORDERED: HYDRALAZINE HCL INJ/PF 20 MG/1 ML SDV ONE (15:33)
[2018-12-21 15:44] LABS: APPEARANCE,URINE CLEAR; BILIRUBIN,URINE NEGATIVE (NEGATIVE); COLOR,URINE YELLOW; GLUCOSE, URINE NEGATIVE (NEGATIVE); KETONES,URINE NEGATIVE (NEGATIVE); LEUKOCYTE ESTERASE,URINE NEGATIVE (NEGATIVE); NITRITE,URINE NEGATIVE (NEGATIVE); PROTEIN,URINE NEGATIVE (NEGATIVE); URINE SPECIFIC GRAVITY 1.009; UROBILINOGEN,URINE NEGATIVE mg/dL (<2.0)
[2018-12-21 15:45] LABS: ABSOLUTE EOSINOPHILS # (AUTO) 0.1 10^3/uL (0.0-0.6); ABSOLUTE LYMPHOCYTES (AUTO) 1.9 10^3/uL (0.5-4.7); ABSOLUTE MONOCYTES (AUTO) 0.7 10^3/uL (0.1-1.4); BASOPHILS % (AUTO) 0.3 % (0-2); HEMATOCRIT 28.2 % (36.0-47.0); HEMOGLOBIN 10.2 g/dL (12.0-15.5); LYMPHOCYTES % (AUTO) 18.1 % (13-45); MEAN CORPUSCULAR HEMOGLOBIN 30.7 pg (27.0-33.4); MEAN CORPUSCULAR HGB CONC 36.1 g/dL (32.0-36.0); MEAN CORPUSCULAR VOLUME 85 fl (80-97); MONOCYTES % (AUTO) 6.5 % (3-13); PLATELET COUNT 315 10^3/uL (150-450); RED BLOOD COUNT 3.31 10^6/uL (3.72-5.28); RED CELL DISTRIBUTION WIDTH 12.9 % (11.5-14.0); SEGMENTED NEUTROPHILS % (AUTO) 74.1 % (42-78); TOTAL CELLS COUNTED % (AUTO) 100 %; WHITE BLOOD COUNT 10.7 10^3/uL (4.0-10.5)
[2018-12-21 15:58] LABS: UR PRO/CREAT RATIO RESULT 0.4 mg/mg (0.0-0.2); URINE CREATININE 93.7 mg/dL (16-327); URINE PROTEIN 34.4 mg/dL (<12)
[2018-12-21 16:08] LABS: ALANINE AMINOTRANSFERASE 22 U/L (9-52); ALBUMIN 3.2 g/dL (3.5-5.0); ALKALINE PHOSPHATASE 137 U/L (38-126); ANION GAP 7 (5-19); ASPARTATE AMINO TRANSFERASE 24 U/L (14-36); BILIRUBIN,DIRECT 0.1 mg/dL (0.0-0.4); BILIRUBIN,TOTAL 0.2 mg/dL (0.2-1.3); BLOOD UREA NITROGEN 7 mg/dL (7-20); CALCIUM 9.4 mg/dL (8.4-10.2); CARBON DIOXIDE 22 mmol/L (22-30); CHLORIDE 108 mmol/L (98-107); GLUCOSE 93 mg/dL (75-110); POTASSIUM 3.8 mmol/L (3.6-5.0); SODIUM 136.5 mmol/L (137-145); TOTAL PROTEIN 5.3 g/dL (6.3-8.2); URIC ACID 6.3 mg/dL (2.5-6.2)
[2018-12-21 16:10] LABS: URINE AMPHETAMINES SCREEN NEGATIVE; URINE BARBITURATES SCREEN NEGATIVE; URINE BENZODIAZEPINES SCREEN NEGATIVE; URINE COCAINE SCREEN NEGATIVE; URINE MARIJUANA (THC) SCREEN NEGATIVE; URINE METHADONE SCREEN NEGATIVE; URINE PHENCYCLIDINE SCREEN NEGATIVE
--- NOTE | 2018-12-21 16:15 | Admission Physical ---
Datetime Report Generated by CPN: 12/21/2018 16:15 CURRENT ADMISSION Chief Complaint: Sent from OB Office for Evaluation and Treatment - Please Specify Indication for Induction: Gestational HTN Admit Impression : No Active Labor Admit Plan: Initiate Labor Induction Protocol Admit Plan- Other: GBS Neg ALLERGIES Medication Allergies: No Medication Allergies: No Known Allergies (12/20/2018) Latex: No Latex Allergies Food Allergies: none Environmental Allergies: none OBSTETRICAL HISTORY EDC: 01/10/2019 00:00 : 2 Para: 1 Term: 1 : 0 SAB: 0 IAB: 0 Ectopic: 0 Livin Cesareans: 0 VBACs: 0 Multiple Births: 0 Gestational Diabetes: No Rh Sensitization: No Incompetent Cervix: No SCARLET: No Infertility: No ART Treatment: No Uterine Anomaly: No IUGR: No Hx Previous C/S: No Macrosomia: No Hx Loss/Stillborn: No PIH: No Hx : No Placenta Previa/Abruption: No Depression/PP Depression: No PTL/PROM: No Post Hemorrhage: No Current Procedures: Ultrasound; NST Obstetrical History Comments: G1 - 2006 Boy 7 lb 8 oz G2 - current SEE RECORDS Alcohol: No Marijuana : No Cocaine: No Other Illicit Drugs: No Cigarettes: Current Everyday Smoker. [id number] MEDICAL HISTORY Diabetes: No Blood Transfusion: No Pulmonary Disease (Asthma, TB): No Breast Disease: No Hypertension: No Head Of Art Surgery: No Heart Disease: No Hosp/Surgery: Yes Autoimmune Disorder: No Anesthetic Complications: No Kidney Disease: No Abnormal Pap Smear: No Neuro/Epilepsy: No Psychiatric Disorders: No Other Medical Diseases: No Hepatitis/Liver Disease: No Significant Family History: No Varicosities/Phlebitis: No Trauma/Violence : No Thyroid Dysfunction: No Medical History Comments: childbirth x1 INFECTIOUS HISTORY Gonorrhea: No Genital Herpes: No Chlamydia: No Tuberculosis: No Syphilis: No Hepatitis: No HIV/AIDS Exposure: No Rash or Viral Illness: No HPV: No PHYSICAL EXAM General: Normal HEENT: Deferred Neurologic: Normal Thyroid: Deferred Heart: Normal Lungs: Normal Breast: Deferred Back: Normal Abdomen: Normal Genitourinary Exam: Normal Extremities: Normal DTRs: Normal Pelvic Type: Adequate Physical Exam Comments: 2.5/50/-[address] [facility] today Vital Signs: Reviewed Details Vital Signs: hydralazine given MEMBRANES Membranes: Intact FETUS A EGA: 37.1 Monitoring: External US FHR- Baseline: 145 Variability: Moderate 6-25bpm Decelerations: None Presentation: Vertex Admit Comment: on Procardia GBS neg sent from [facility] PLANS FOR LABOR AND DELIVERY Pain Management: None Feeding Preference: Breast Benefit of Breast Feed Discussed: Yes Circumcision: N/A INFORMED CONSENT Assignment: Cely Swanson MD Signature: with User ID: Juan : with User ID: [email or web address]
[2018-12-21] MEDS ORDERED: OXYTOCIN/NORMAL SALINE 20 UNIT/1,000 ML RTUINJ IV PRN (16:17)
[2018-12-21] MEDS ORDERED: MISOPROSTOL 0.2 MG TABLET ONE (18:03)
[2018-12-21] MEDS ORDERED: OXYTOCIN/NORMAL SALINE 20 UNIT/1,000 ML RTUINJ ONE (18:03)
[2018-12-21] MEDS ORDERED: LIDOCAINE 1% INJ-PF (10 MG/ML) 30 ML SDV ONE (18:03)
[2018-12-21] MEDS ORDERED: ONDANSETRON HCL INJ/PF 4 MG/2 ML SDV IV PRN (18:59)
[2018-12-21] MEDS ORDERED: MAG HYDROX/AL HYDROX/SIMETH SUSP 30 ML UDCUP PO PRN (18:59)
[2018-12-21] MEDS ORDERED: MAG HYDROX/AL HYDROX/SIMETH SUSP 30 ML UDCUP ONE (19:01)
[2018-12-21] MEDS ORDERED: ONDANSETRON HCL INJ/PF 4 MG/2 ML SDV ONE (19:01)
[2018-12-21] MEDS ORDERED: NALBUPHINE HCL INJ 10 MG/1 ML AMPULE INJ ONE (20:43)
[2018-12-21] MEDS ORDERED: PROMETHAZINE HCL INJ 25 MG/1 ML VIAL IV ONE (20:44)
[2018-12-21] MEDS ORDERED: NALBUPHINE HCL INJ 10 MG/1 ML AMPULE ONE (20:46)
[2018-12-21] MEDS ORDERED: PROMETHAZINE HCL INJ 25 MG/1 ML VIAL ONE (20:46)
[2018-12-22] MEDS ORDERED: HYDRALAZINE HCL INJ/PF 20 MG/1 ML SDV ONE (02:26)
[2018-12-22] MEDS ORDERED: EPHEDRINE SULFATE INJ 50 MG/1 ML AMPULE ONE (03:37)
[2018-12-22] MEDS ORDERED: BUPIVACAINE HCL 0.25 % INJ/PF (2.5 MG/1 ML) 30 ML VIAL ONE (03:37)
[2018-12-22] MEDS ORDERED: FENTANYL/BUPIVACAINE/NS/PF 0 MCG/0 ML RTUINJ EPI ONE (03:37)
[2018-12-22] MEDS ORDERED: PSEUDOEPHEDRINE HCL 30 MG TABLET PO PRN (04:44)
[2018-12-22] MEDS ORDERED: ACETAMINOPHEN WITH CODEINE #3 TABLET PO PRN ×2 (04:44)
[2018-12-22] MEDS ORDERED: OXYTOCIN/NORMAL SALINE 20 UNIT/1,000 ML RTUINJ IV PRN (04:44)
[2018-12-22] MEDS ORDERED: NA PHOS,M-B/NA PHOS,DI-BA (ADULT) 133 ML ENEMA PR PRN (04:44)
[2018-12-22] MEDS ORDERED: PROMETHAZINE HCL INJ 25 MG/1 ML VIAL IV PRN (04:44)
[2018-12-22] MEDS ORDERED: MEASLES,MUMPS&RUBELLA VACC/PF 0.5 ML VIAL SUBCUT PRN (04:44)
[2018-12-22] MEDS ORDERED: PROMETHAZINE HCL 25 MG SUPP.RECT PR PRN (04:44)
[2018-12-22] MEDS ORDERED: MAGNESIUM HYDROXIDE SUSP 30 ML UDCUP PO PRN (04:44)
[2018-12-22] MEDS ORDERED: DIPHENHYDRAMINE HCL 25 MG CAPSULE PO PRN (04:44)
[2018-12-22] MEDS ORDERED: ACETAMINOPHEN 650 MG SUPP.RECT PR PRN (04:44)
[2018-12-22] MEDS ORDERED: DIPH/PERTUSS(ACELL)/TETANUS VAC/PF 0.5 ML SYR (>=10YO) IM PRN (04:44)
[2018-12-22] MEDS ORDERED: GLYCERIN/WITCH HAZEL LEAF 1 EACH MED..PAD TP PRN (04:44)
[2018-12-22] MEDS ORDERED: ZOLPIDEM TARTRATE 5 MG TABLET PO PRN (04:44)
[2018-12-22] MEDS ORDERED: PROMETHAZINE HCL 25 MG TABLET PO PRN (04:44)
[2018-12-22] MEDS ORDERED: DIBUCAINE 1% OINTMENT 28 GM TP PRN (04:44)
[2018-12-22] MEDS ORDERED: IBUPROFEN 800 MG TABLET ONE (05:09)
--- NOTE | 2018-12-22 05:52 | Delivery Summary ---
Del Sum A-C Datetime Report Generated by CPN: 12/22/2018 05:52 DELIVERY PERSONNEL DELIVERY PERSONNEL: [id number] Delivery Doctor:: Cely Swanson MD Labor and Delivery Nurse:: Luisa Fofana RN Nursery Nurse:: Mary Lou Bell RN Imaging System Administrator/MANAGER CLINICAL SERVICES: Becky Alvarez, DIRECTOR OF FINANCE MATERNAL INFORMATION Delivery Anesthesia: None Medications After Delivery: Pitocin Drip 20 Units/1000ml NSS Estimated Blood Loss (ml): 200 Maternal Complications: None LABOR SUMMARY EDC: 01/10/2019 00:00 No. Babies in Womb: 1 Attempted: No Labor Anesthesia: None LABOR INFORMATION Reason for Induction: Pre-Eclampsia Onset of Labor: 12/21/2018 20:35 Complete Dilatation: 12/22/2018 03:57 Oxytocin: Induction Group B Beta Strep: Negative Antibiotics # of Doses: N/A Antibiotics Time of Last Dose: N/A Name of Antibiotic Given: N/A Steroids Given: None Reason Steroids Not Administered: Not Applicable MEMBRANES Membranes Rupture Method: Spontaneous Rupture of Membranes: 12/22/2018 03:22 Length of Rupture (hr): 0.82 Amniotic Fluid Color: Clear Amniotic Fluid Amount: None Amniotic Fluid Odor: Normal STAGES OF LABOR Stage 1 hr: 7 Stage 1 min: 22 Stage 2 hr: 0 Stage 2 min: 14 Stage 3 hr: 0 Stage 3 min: 4 Total Time in Labor hr: 7 Total Time in Labor min: 40 VAGINAL DELIVERY Episiotomy: None Laceration #1: Perineal; Vaginal Laceration Extension #1: Second Degree Laceration Repair: Yes Laceration Repair Note: 2-0 chromic repair Initial Vag Sponge Count: 0 Final Vag Sponge Count: 0 Initial Vag Sharps Count: 0 Final Vag Sharps Count: 0 Sponge Count Correct: N/A Sharps Count Correct: N/A CSECTION DELIVERY Primary Indication: N/A Secondary Indication: N/A CSection Incidence: N/A Labor: N/A Elective: N/A CSection Incision: N/A BABY A INFORMATION Infant Delivery Date/Time: 12/22/2018 04:11 Method of Delivery: Vaginal Born in Route : No : N/A Forceps: N/A Vacuum Extraction: N/A Shoulder Dystocia : No PRESENTATION/POSITION BABY A Presentation: Cephalic Cephalic Presentation: Vertex Vertex Position: Left Occipital Anterior Breech Presentation: N/A PLACENTA INFORMATION BABY A Placenta Delivery Time : 12/22/2018 04:15 Placenta Method of Delivery: Spontaneous Placenta Status: Delivered SCORES BABY A Heart Rate 1 min: >100 bpm Resp Effort 1 min: Good Cry Reflex Irritability 1 min: Cough or Sneeze or Pulls Away Muscle Tone 1 min: Active Motion Color 1 min: Blue/Pale Resuscitation Effort 1 min: Tactile Stimulation SCORE 1 MIN: 8 Heart Rate 5 min: >100 bpm Resp Effort 5 min: Good Cry Reflex Irritability 5 min: Cough or Sneeze or Pulls Away Muscle Tone 5 min: Active Motion Color 5 min: Body [place], Extremities Blue Resuscitation Effort 5 min: Tactile Stimulation SCORE 5 MIN: 9 INFANT INFORMATION BABY A Gestational Age at Delivery: 37.2 Gestational Status: Early Term- 37- 38.6 Weeks Infant Outcome : Liveborn Condition : Stable Infant Sex: Female IDENTIFICATION BABY A Infant Verification Date/Time: 12/22/2018 04:20 ID Band Number: [id number] Mother's Name Verified: Yes RN Verifying Infant: A. Misyak, RN Additional Verifying Personnel: Mary Kay Alvarez, ST WEIGHT/LENGTH BABY A Birthweight (gm): 2867 Weight (lb): 6 Weight (oz): 5 Length (in): 19.00 Length (cm): 48.26 CORD INFORMATION BABY A No. Cord Vessels: 3 Nuchal Cord : N/A Cord Blood Taken: Yes-For Storage (Mom's Blood type +) Infant Suction: None ASSESSMENT BABY A Skin to Skin: Yes Skin to Skin Time (min): 60 BABY B INFORMATION : N/A SIGNATURES Signature: with User ID: [email or web address] : I was personally available for consultation and serving as supervising physician for the MLP.
--- NOTE | 2018-12-22 06:22 | Warning Signs in Babies ---
VOD Warning Signs Datetime Report Generated by [facility]: 12/22/2018 06:22 VOD#608 -Warning Signs in Babies: Viewed with Parent(s)/Family (09/27/2018 20:26:Luisa Fofana RN)
--- NOTE | 2018-12-22 06:41 | Warning Signs in Babies ---
VOD Warning Signs Datetime Report Generated by [facility]: 12/22/2018 06:41 VOD#608 -Warning Signs in Babies: Viewed with Parent(s)/Family (12/22/2018 06:10:Luisa Fofana RN)
[2018-12-22] MEDS: PRENATAL VITAMIN W DHA CAPSULE PO SCH (10:35)
[2018-12-22] MEDS: NIFEDIPINE 30 MG TAB.ER.24 PO SCH (10:35)
[2018-12-22] MEDS: FAMOTIDINE 20 MG TABLET PO SCH ×2 (10:35→22:28)
[2018-12-22] MEDS: SENNOSIDES/DOCUSATE 8.6-50 MG 1 EACH TABLET PO SCH (10:35)
[2018-12-22] MEDS: DOCUSATE SODIUM 100 MG CAPSULE PO SCH ×2 (10:37→18:35)
[2018-12-22] MEDS: FERROUS SULFATE 325 MG TABLET PO SCH ×2 (10:37→18:35)
--- NOTE | 2018-12-22 11:04 | PDOC PROGRESS REPORT ---
Subjective-OB Progress Note for:: 12/22/18 Subjective: Pt doing well. No concerns. Reports light bleeding, reg diet and voiding without difficulty. Physical Exam (OB) Vital Signs: Temp Pulse Resp BP Pulse Ox 97.9 F 61 16 141/72 H 98 12/22/18 06:32 12/22/18 06:32 12/22/18 06:32 12/22/18 06:32 12/22/18 06:32 Intake & Output 12/21/18 12/22/18 12/23/18 06:59 06:59 06:59 Weight 89.9 kg - PIH/Pre-Eclampsia DTR's: 1 + Clonus: Negative Headache: Absent Epigastric Pain: No Visual Changes: No - Lochia Lochia Amount: Small 10-25 ml Lochia Color: Rubra/Red - Abdomen Description: Soft, Round Fundal Description: Firm Fundal Height: u/u - u/2 Objective-Diagnostic Laboratory: 12/21/18 15:34 12/21/18 15:34 12/21/18 12/21/18 12/21/18 14:50 15:34 15:34 WBC 10.7 H RBC 3.31 L Hgb 10.2 L Hct 28.2 L MCV 85 MCH 30.7 MCHC 36.1 H RDW 12.9 Plt Count 315 Seg Neutrophils % 74.1 Lymphocytes % 18.1 Monocytes % 6.5 Eosinophils % 1.0 Basophils % 0.3 Absolute Neutrophils 8.0 Absolute Lymphocytes 1.9 Absolute Monocytes 0.7 Absolute Eosinophils 0.1 Absolute Basophils 0.0 Sodium 136.5 L Potassium 3.8 Chloride 108 H Carbon Dioxide 22 Anion Gap 7 BUN 7 Creatinine 0.65 Est GFR ( Amer) > 60 Est GFR (Non-Af Amer) > 60 Glucose 93 Uric Acid 6.3 H Calcium 9.4 Total Bilirubin 0.2 AST 24 ALT 22 Alkaline Phosphatase 137 H Total Protein 5.3 L Albumin 3.2 L Urine Color YELLOW Urine Appearance CLEAR Urine pH 6.0 Ur Specific [place] 1.009 Urine Protein NEGATIVE Urine Glucose (UA) NEGATIVE Urine Ketones NEGATIVE Urine Blood NEGATIVE Urine Nitrite NEGATIVE Ur Leukocyte Esterase NEGATIVE Urine WBC (Auto) 0 Urine RBC (Auto) 0 Blood Type Antibody Screen 12/21/18 15:34 WBC RBC Hgb Hct MCV MCH MCHC RDW Plt Count Seg Neutrophils % Lymphocytes % Monocytes % Eosinophils % Basophils % Absolute Neutrophils Absolute Lymphocytes Absolute Monocytes Absolute Eosinophils Absolute Basophils Sodium Potassium Chloride Carbon Dioxide Anion Gap BUN Creatinine Est GFR ( Amer) Est GFR (Non-Af Amer) Glucose Uric Acid Calcium Total Bilirubin AST ALT Alkaline Phosphatase Total Protein Albumin Urine Color Urine Appearance Urine pH Ur Specific [place] Urine Protein Urine Glucose (UA) Urine Ketones Urine Blood Urine Nitrite Ur Leukocyte Esterase Urine WBC (Auto) Urine RBC (Auto) Blood Type A POSITIVE Antibody Screen NEGATIVE Assessment and Plan(PN) - Assessment and Plan (1) Vaginal delivery Is this a current diagnosis for this admission?: Yes (2) Gestational hypertension Qualifiers: Trimester: third trimester Qualified Code(s): O13.3 - Gestational [-induced] hypertension without significant proteinuria, third trimester Is this a current diagnosis for this admission?: Yes - Time Spent with Patient Time with patient: Less than 15 minutes Medications reviewed and adjusted accordingly: Yes - Disposition Anticipated Discharge: Home Within: within 24 hours
[2018-12-22] MEDS: IBUPROFEN 800 MG TABLET PO SCH ×3 (14:49→22:30)
[2018-12-23] MEDS: BENZOCAINE/MENTHOL AEROSOL SPRAY 56 ML TOP PRN ×2 (06:30→18:22)
[2018-12-23] MEDS: IBUPROFEN 800 MG TABLET PO SCH ×3 (06:30→21:35)
[2018-12-23 08:05] LABS: HEMATOCRIT 26.3 % (36.0-47.0); MEAN CORPUSCULAR HEMOGLOBIN 29.6 pg (27.0-33.4); MEAN CORPUSCULAR HGB CONC 34.4 g/dL (32.0-36.0); MEAN CORPUSCULAR VOLUME 86 fl (80-97); PLATELET COUNT 287 10^3/uL (150-450); RED BLOOD COUNT 3.05 10^6/uL (3.72-5.28); RED CELL DISTRIBUTION WIDTH 13.2 % (11.5-14.0); WHITE BLOOD COUNT 15.5 10^3/uL (4.0-10.5)
[2018-12-23] MEDS: FERROUS SULFATE 325 MG TABLET PO SCH ×2 (09:33→18:22)
[2018-12-23] MEDS: DOCUSATE SODIUM 100 MG CAPSULE PO SCH ×2 (09:33→18:22)
[2018-12-23] MEDS: FAMOTIDINE 20 MG TABLET PO SCH ×2 (09:33→21:35)
[2018-12-23] MEDS: NIFEDIPINE 30 MG TAB.ER.24 PO SCH (09:33)
[2018-12-23] MEDS: PRENATAL VITAMIN W DHA CAPSULE PO SCH (09:33)
[2018-12-23] MEDS: SENNOSIDES/DOCUSATE 8.6-50 MG 1 EACH TABLET PO SCH (09:36)
--- NOTE | 2018-12-23 10:35 | PDOC PROGRESS REPORT ---
Subjective-OB Progress Note for:: 12/23/18 Subjective: Pt doing well, no concerns. She reports light bleeding, reg diet and voiding without difficulty. Physical Exam (OB) Vital Signs: Temp Pulse Resp BP Pulse Ox 98.0 F 71 16 136/79 H 99 12/23/18 07:31 12/23/18 07:31 12/23/18 07:31 12/23/18 07:31 12/23/18 07:31 Intake & Output 12/22/18 12/23/18 12/24/18 06:59 06:59 06:59 Intake Total 1000 Output Total 700 Balance 300 Weight 89.9 kg - PIH/Pre-Eclampsia DTR's: 1 + Clonus: Negative Headache: Absent Epigastric Pain: No Visual Changes: No - Lochia Lochia Amount: Small 10-25 ml Lochia Color: Rubra/Red - Abdomen Description: Soft, Round Hernia Present: No Fundal Description: Firm, Midline Fundal Height: u/u - u/2 Objective-Diagnostic Laboratory: 12/23/18 07:49 12/21/18 15:34 12/23/18 07:49 WBC 15.5 H RBC 3.05 L Hgb 9.0 L Hct 26.3 L MCV 86 MCH 29.6 MCHC 34.4 RDW 13.2 Plt Count 287 Assessment and Plan(PN) - Assessment and Plan (1) Vaginal delivery Is this a current diagnosis for this admission?: Yes (2) Gestational hypertension Qualifiers: Trimester: third trimester Qualified Code(s): O13.3 - Gestational [-induced] hypertension without significant proteinuria, third trimester Is this a current diagnosis for this admission?: Yes - Time Spent with Patient Time with patient: Less than 15 minutes Smoking Education Provided: Over 3 minutes Medications reviewed and adjusted accordingly: Yes - Disposition Anticipated Discharge: Home Within: within 24 hours
[2018-12-24] MEDS: IBUPROFEN 800 MG TABLET PO SCH (06:26)
[2018-12-24 10:03] VITALS: BP 144/96
[2018-12-24] MEDS: NIFEDIPINE 30 MG TAB.ER.24 PO SCH (10:20)
[2018-12-24] MEDS: FERROUS SULFATE 325 MG TABLET PO SCH (10:20)
[2018-12-24] MEDS: DOCUSATE SODIUM 100 MG CAPSULE PO SCH (10:20)
[2018-12-24] MEDS: FAMOTIDINE 20 MG TABLET PO SCH (10:20)
[2018-12-24] MEDS: SENNOSIDES/DOCUSATE 8.6-50 MG 1 EACH TABLET PO SCH (10:20)
[2018-12-24] MEDS: PRENATAL VITAMIN W DHA CAPSULE PO SCH (10:20)
--- NOTE | 2018-12-24 11:15 | PDOC DISCHARGE SUMMARY ---
Final Diagnosis Discharge Date: 12/24/18 - Final Diagnosis (1) Obstetrical laceration, second degree Is this a current diagnosis for this admission?: Yes (2) Pre-eclampsia Is this a current diagnosis for this admission?: Yes (3) Vaginal delivery Is this a current diagnosis for this admission?: Yes Discharge Data - Discharge Medication Prescriptions: Ibuprofen [Motrin 800 mg Tablet] 800 mg PO Q8HP PRN #60 tablet PRN Reason: Nifedipine [Procardia XL 30 mg Tablet] 30 mg PO DAILY #30 tab.er.24 Home Medications: Cetirizine HCl [Zyrtec] 10 mg PO DAILY 09/27/18 Pnv No.95/Ferrous Fum/Folic AC [ Formula Tablet] 1 each PO DAILY 09/27/18 Ranitidine HCl [Zantac 75 mg Tablet] 75 mg PO BID 09/27/18 Ascorbic Acid [Vitamin C 500 mg Tablet] 1 tab PO DAILY 12/07/18 Ferrous Sulfate [Feosol 325 mg Tablet] 1 tab PO BID 12/07/18 Ibuprofen [Motrin 800 mg Tablet] 800 mg PO Q8HP PRN #60 tablet 12/24/18 Nifedipine [Procardia XL 30 mg Tablet] 30 mg PO DAILY #30 tab.er.24 12/24/18 Reason(s) for Admission: Induction of Labor Procedures: None Intrapartum Procedure(s): Spontaneous Vaginal Delivery Complication(s): Laceration-Perineal Laceration-Degree: 2nd - Diagnosis Test Laboratory: Temp Pulse Resp BP Pulse Ox 97.9 F 72 15 144/96 H 98 12/24/18 07:51 12/24/18 07:51 12/24/18 07:51 12/24/18 07:51 12/24/18 07:51 12/21/18 12/21/18 12/23/18 14:50 15:34 07:49 RBC 3.31 L 3.05 L Hgb 10.2 L 9.0 L Hct 28.2 L 26.3 L Urine Opiates Screen NEGATIVE - Discharge information/Instructions Discharge Activity: Balance Activity w/Rest, Pelvic Rest Discharge Diet: Regular Disposition: HOME, SELF-CARE Follow [facility] with: [facility] in: 1, Weeks
== END 2018-12-24 13:20 | disposition home or self-care (01) | DRG 807 ==
LOC: LC 14:39 → LR 14:41 → 2S 12-22 06:43
PROVIDERS: ADMIT Obstetrics & Gynecology; ATTEND Obstetrics & Gynecology
PROC: 10E0XZZ Delivery of Products of Conception, External Approach (ICD-10-PCS; principal; 2018-12-22)
PROC: 0KQM0ZZ Repair Perineum Muscle, Open Approach (ICD-10-PCS; 2018-12-22)
PROC: 3E0234Z Introduction of Serum, Toxoid and Vaccine into Muscle, Percutaneous Approach (ICD-10-PCS; 2018-12-24)
DX: O13.4 Gestational [pregnancy-induced] hypertension without significant proteinuria, complicating childbirth (principal); Z37.0 Single live birth; O14.94 Unspecified pre-eclampsia, complicating childbirth; O70.1 Second degree perineal laceration during delivery; O99.334 Smoking (tobacco) complicating childbirth; F17.210 Nicotine dependence, cigarettes, uncomplicated; Z3A.37 37 weeks gestation of pregnancy
CPT/HCPCS: 36415; 80053; 80307; 81001; 82570; 83615; 84156; 84550; 85025; 85027; 86592; 86850; 86900; 86901; 90715; J0360; J2300; J2405; J2550; J2590; J3010; J3490

== ENCOUNTER 2019-03-14 15:36 | Emergency (ER) | payer MEDICAID, OTHER ==
[2019-03-14] MEDS ORDERED: IBUPROFEN 800 MG TABLET PO ONE (16:13)
--- NOTE | 2019-03-14 16:16 | ER Document Report ---
ED Extremity Problem, Upper - General Chief Complaint: Arm Injury Stated Complaint: POSSIBLE BROKEN WRIST Time Seen by Provider: 03/14/19 16:04 Primary Care Provider: [facility] [Provider Group] - Follow up as needed [facility] - Follow up as needed Mode of Arrival: Ambulatory Information source: Patient Notes: 33-year-old female presented to ED for complaint of pain in left wrist. She states she was trying to take limbs off of a tree when the limb snapped back and hit her in the wrist and now she has severe pain going up the arm and down to the fingers. She states the main pain is in the front of the wrist on her left wrist. Patient is alert oriented respirations regular and unlabored speaking in full sentences walks with a even steady gait. TRAVEL OUTSIDE OF THE [place] IN LAST 30 DAYS: No - HPI Patient complains to provider of: Left, Wrist Onset: Just prior to arrival Recent injury: Yes Where: Work Quality of pain: Sharp, Throbbing Severity of pain: Moderate Pain Level: 4 Context: Blow Associated symptoms: None Exacerbated by: Movement, Exertion Relieved by: Rest, Positioning Similar symptoms previously: No Recently seen / treated by doctor: No - Related Data Allergies/Adverse Reactions: No Known Allergies Allergy (Verified 03/14/19 15:36) Past Medical History - General Information source: Patient - Social History Smoking Status: Current Every Day Smoker Cigarette use (# per day): Yes - Half pack per day Smoking Education Provided: Yes - 4 minutes Frequency of alcohol use: None Drug Abuse: None Occupation: Long maintenance Lives with: Spouse/Significant other - Female for female Family History: Reviewed & Not Pertinent Patient has suicidal ideation: No Patient has homicidal ideation: No - Past Medical History Cardiac Medical History: Reports: Hx Hypertension Pulmonary Medical History: Reports: None EENT Medical History: Reports: None Neurological Medical History: Reports: Hx Migraine Endocrine Medical History: Reports: None Renal/ Medical History: Reports: None Malignancy Medical History: Reports: None GI Medical History: Reports: None Musculoskeletal Medical History: Reports None Skin Medical History: Reports None Psychiatric Medical History: Reports: None Traumatic Medical History: Reports: Hx Fractures - Clavicle Infectious Medical History: Reports: None Surgical Hx: Negative Past Surgical History: Reports: None - Immunizations Immunizations up to date: Yes Hx Diphtheria, Pertussis, Tetanus Vaccination: Yes Review of Systems - Review of Systems Constitutional: No symptoms reported EENT: No symptoms reported Cardiovascular: No symptoms reported Respiratory: No symptoms reported Gastrointestinal: No symptoms reported Genitourinary: No symptoms reported Female Genitourinary: No symptoms reported Musculoskeletal: Joint pain - Left wrist, Joint swelling - Left wrist Skin: No symptoms reported Hematologic/Lymphatic: No symptoms reported Neurological/Psychological: No symptoms reported -: Yes All other systems reviewed and negative Physical Exam - Vital signs Vitals: Temp Pulse Resp BP Pulse Ox 100.2 F 90 14 142/97 H 99 03/14/19 15:46 03/14/19 15:46 03/14/19 15:46 03/14/19 15:46 03/14/19 15:46 Interpretation: Normal - General General appearance: Appears well, Alert - HEENT Head: Normocephalic, Atraumatic Eyes: Normal Pupils: PERRL - Respiratory Respiratory status: No respiratory distress Chest status: Nontender Breath sounds: Normal Chest palpation: Normal - Cardiovascular Rhythm: Regular Heart sounds: Normal auscultation Murmur: No - Abdominal Inspection: Normal Distension: No distension Bowel sounds: Normal Tenderness: Nontender Organomegaly: No organomegaly - Back Back: Normal, Nontender - Extremities General upper extremity: Normal inspection, Normal color, Normal temperature General lower extremity: Normal inspection, Nontender, Normal color, Normal ROM, Normal temperature, Normal weight bearing. No: Jerrod's sign Wrist: Tender, Axial load of thumb pain, Limited ROM - Due to pain. No: Abrasion, Deformity, Dislocation, Ecchymosis, Laceration, Navicular tenderness Hand: Tender, No evidence of human bite, No evidence of FB - Neurological Neuro grossly intact: Yes Cognition: Normal Orientation: AAOx4 [place] Coma Scale Eye Opening: Spontaneous [place] Coma Scale Verbal: Oriented [place] Coma Scale Motor: Obeys Commands [place] Coma Scale Total: 15 Speech: Normal Motor strength normal: LUE, RUE, LLE, RLE Sensory: Normal - Psychological Associated symptoms: Normal affect, Normal mood - Skin Skin Temperature: Warm Skin Moisture: Dry Skin Color: Normal Course - Vital Signs Vital signs: Temp Pulse Resp BP Pulse Ox 98.6 F 80 16 136/95 H 100 03/14/19 16:53 03/14/19 16:53 03/14/19 16:53 03/14/19 16:53 03/14/19 16:53 - Diagnostic Test Radiology reviewed: Image reviewed, Reports reviewed Procedures - Immobilization Left Wrist Time completed: 16:46 Immobilizer type: Cock-up Performed by: PCT Post-Proc Neuro Vasc Exam: Normal Alignment checked and good: Yes Discharge - Discharge Clinical Impression: Contusion of left wrist Qualifiers: Encounter type: initial encounter Qualified Code(s): S60.212A - Contusion of left wrist, initial encounter Condition: Stable Disposition: HOME, SELF-CARE Additional Instructions: CONTUSION: Your injury has resulted in a contusion -- a crushing of the deep tissues. No injury to important structures was detected during the physician's exam. Contusions vary in the amount of pain they cause, and in the length of time required for healing. Typically, the area will become bruised, and will remain painful to touch for two or three weeks. However, most patients are back to working and playing within a few days. After the initial period of rest and cold-packs, your symptoms (together with the doctor's recommendations) will determine how rapidly you can get back to full activity. Usually this means "do what feels okay, but don't do things that hurt." If re-examination was recommended, it's important to follow up as instructed. Call the doctor or return any time if pain increases, if swelling becomes severe, if you develop numbness or weakness in an injured extremity, or if any other alarming symptoms occur. USE OF TYLENOL (ACETAMINOPHEN): Acetaminophen may be taken for pain relief or fever control. It's much safer than aspirin, offering a wider range of "safe" dosages. It is safe during . Some brand names are Tylenol, Panadol, Datril, Anacin 3, Tempra, and Liquiprin. Acetaminophen can be repeated every four hours. The following are maximum recommended dosages: WEIGHT Dose Drops Elixir Chewable(80mg) (LBS.) drprs=droppers tsp=teaspoon 6 40 mg 0.4 ml (1/2) 6-11 80 mg 0.8 ml (full) tsp 1 tab 12-16 120 mg 1 1/2 drprs 3/4 tsp 1 1/2 tabs 17-23 160 mg 2 drprs 1 tsp 2 tabs 24-30 240 mg 3 drprs 1 1/2 tsp 3 tabs 30-35 320 mg 2 tsp 4 tabs 36-41 360 mg 2 1/4 tsp 4 1/2 tabs 42-47 400 mg 2 1/2 tsp 5 tabs 48-53 480 mg 3 tsp 6 tabs 54-59 520 mg 3 1/4 tsp 6 1/2 tabs 60-64 560 mg 3 1/2 tsp 7 tabs 65-70 600 mg 3 3/4 tsp 7 1/2 tabs 71-76 640 mg 4 tsp 8 tabs 77-82 720 mg 4 1/2 tsp 9 tabs 83-88 800 mg 5 tsp 10 tabs >89 pounds or adults 650 mg to 900 mg Acetaminophen can be repeated every four hours. Maximum dose not to exceed 4000 mg a day. These maximum recommended dosages are slightly higher than the dosages written on the product container, but these dosages are very safe and below the toxic dosage for acetaminophen. ICE & ELEVATION: Apply ice packs frequently against the painful area. Many different schedules are recommended, such as "20 minutes on, 20 minutes off" or "one hour ice, two hours rest." If you need to work, you may need to go longer between ice treatments. You should plan to have the area ice packed AT LEAST one-fourth of the time. The ice should be applied over the wrap, tape, or splint, or over a layer of cloth -- not directly against the skin. Some ice bags have a built-in cloth and can be put directly on the skin. Your injured part should be elevated as much as possible over the next 48 hours. Try to keep the injury above the level of the heart. Avoid use of the injured area. Elevation and rest will decrease the swelling. USE OF [id number] IBUPROFEN: Ibuprofen (Advil, Nuprin, Medipren, Motrin IB) is a medication for fever and pain control. In addition, it has anti- inflammatory effects which may be beneficial, especially in the treatment of injuries. It's best to take ibuprofen with food. Persons with ulcer disease or allergy to aspirin should notify their physician of this before taking i buprofen. Ibuprofen can be given every four to six hours, for a total of four doses daily. Age Pain or fever dose Antiinflammatory dose 6-8 yr 200 mg (1 tab) 200 mg (1 tab) 9-11 yr 200 mg (1 tab) 200-400 mg (1-2 tab) 11-14 yr 200-400 mg (1-2 tab) 400 mg (2 tab) 15-adult 400 mg (2 tab) 600 mg (3 tab) FOLLOW-UP CARE: If you have been referred to a physician for follow-up care, call the physicians office for an appointment as you were instructed or within the next two days. If you experience worsening or a significant change in your symptoms, notify the physician immediately or return to the Emergency Department at any time for re-evaluation. Placed a cock-up splint on this wrist for your comfort. There is no breaks or sprains at this time you did it with a tree branch which would cause pain in your wrist. Please follow-up with orthopedics if you are not getting relief from your pain in the next couple days. Use your wrist as soon as you are able to move it without discomfort. Forms: Elevated Blood Pressure, Special Work Note, Smoking Cessation Education Referrals: [facility] [Primary [facility]] - Follow up as needed [facility] [Provider Group] - Follow up as needed
--- NOTE | 2019-03-14 16:31 | RADIOLOGY REPORT (SQ) ---
EXAM DESCRIPTION: WRIST LEFT 3 VIEWS COMPLETED DATE/TIME: 03/14/2019 4:24 pm REASON FOR STUDY: pain and injury COMPARISON: None. NUMBER OF VIEWS: Three views. TECHNIQUE: AP, lateral, and oblique radiographic images acquired of the left wrist. LIMITATIONS: None. FINDINGS: MINERALIZATION: Normal. BONES: No acute fracture or dislocation. No worrisome bone lesions. Normal alignment. SOFT TISSUES: No soft tissue swelling. No foreign body. OTHER: No other significant finding. IMPRESSION: NEGATIVE STUDY OF THE LEFT WRIST. NO RADIOGRAPHIC EVIDENCE OF ACUTE INJURY. TECHNICAL DOCUMENTATION: JOB ID: [id number] [employer]- All Rights Reserved Reading location - IP/workstation name: [email or web address]
[2019-03-14 17:00] VITALS: BP 136/95
== END 2019-03-14 17:05 | disposition home or self-care (01) ==
LOC: ER 15:36
DX: S60.212A Contusion of left wrist, initial encounter (principal); M25.532 Pain in left wrist; W20.8XXA Other cause of strike by thrown, projected or falling object, initial encounter; Y93.89 Activity, other specified; Y99.0 Civilian activity done for income or pay; F17.210 Nicotine dependence, cigarettes, uncomplicated; Z71.6 Tobacco abuse counseling; I10 Essential (primary) hypertension
CPT/HCPCS: 99406; 99283; 73110; L3908